=== PATIENT | female | born 1990 | race Caucasian/White ===

== ENCOUNTER 2018-04-13 10:27 | Emergency (ER) | payer SELFPAY ==
[~2018-04-13] VITALS: Ht 160 cm; Wt 54.4 kg
[2018-04-13 11:26] VITALS: BP 118/65
--- NOTE | 2018-04-13 11:27 | NUR ---
Patient discharged to home in stable conditon. Written and verbal after care instructions given. Patient verbalizes understanding of instructions.
== END 2018-04-13 11:30 | disposition home or self-care (01) ==
LOC: ER 10:27
DX: S09.90XA Unspecified injury of head, initial encounter (principal); F07.81 Postconcussional syndrome; Z88.2 Allergy status to sulfonamides; V43.52XA Car driver injured in collision with other type car in traffic accident, initial encounter; Y93.89 Activity, other specified; Y92.410 Unspecified street and highway as the place of occurrence of the external cause; Y99.8 Other external cause status
CPT/HCPCS: 70450; A4663